=== PATIENT | female | born 1955 | race Caucasian/White ===

== ENCOUNTER → 2020-03-23 08:26 | Outpatient (BNVA) | payer BC, SELFPAY | PROVIDERS: PCP Internal Medicine; Visit Provider Hospitalist | DX: J44.9 Chronic obstructive pulmonary disease, unspecified (principal); R91.8 Other nonspecific abnormal finding of lung field; G47.33 Obstructive sleep apnea (adult) (pediatric); R05 Cough; Z99.89 Dependence on other enabling machines and devices; Z23 Encounter for immunization | CPT/HCPCS: 90686 ==

== ENCOUNTER → 2020-06-27 12:52 | Outpatient (BNVA) | payer MEDICARE, SELFPAY | PROVIDERS: PCP Internal Medicine; Visit Provider Hospitalist | DX: R91.8 Other nonspecific abnormal finding of lung field (principal); R05 Cough; G47.33 Obstructive sleep apnea (adult) (pediatric); J44.9 Chronic obstructive pulmonary disease, unspecified; Z99.89 Dependence on other enabling machines and devices | CPT/HCPCS: 99212 ==

== ENCOUNTER → 2020-07-25 15:26 | Outpatient (BNVA) | payer MEDICARE, SELFPAY | PROVIDERS: PCP Internal Medicine; Visit Provider Hospitalist | DX: J44.9 Chronic obstructive pulmonary disease, unspecified (principal); J40 Bronchitis, not specified as acute or chronic; R91.8 Other nonspecific abnormal finding of lung field; G47.33 Obstructive sleep apnea (adult) (pediatric); R05 Cough; Z99.89 Dependence on other enabling machines and devices; Z87.891 Personal history of nicotine dependence | CPT/HCPCS: 99212 ==

== ENCOUNTER 2021-01-23 13:17 | Outpatient (REF) | payer MEDICARE, SELFPAY ==
--- NOTE | ~2021-01-23 | CT_ITS ---
EXAMINATION: CT CHEST WITHOUT CONTRAST CLINICAL INFORMATION: Pulmonary nodule COMPARISON: Previous chest CT February 2019 and chest x-ray July 2019 TECHNIQUE: Multidetector volumetric CT imaging of the chest was done. Axial MIP volume rendering provided. Sagittal and coronal reformatted images were obtained. This CT examination was performed using dose optimization techniques as appropriate, variously including the following: *Automated exposure control *Adjustment of mA and/or kV according to patient size (this includes techniques or standardized protocols for targeted exams where dose is matched to indication/reason for exam; i.e. extremities or head) *Use of iterative reconstruction technique DLP: 119 mGy-cm FINDINGS: LUNGS: There are small calcified and noncalcified right upper lobe nodules that are stable. The largest is a 3 mm calcified right upper lobe nodule axial image 92 series 9. The lungs are otherwise clear. No evidence of interstitial disease is seen bronchiectasis is seen. No endobronchial or endotracheal lesion is seen. MEDIASTINUM: The mediastinum is normal. PLEURA: There is no pleural effusion. No pleural mass or thickening. AXILLA: There are surgical clips in both axilla. Bilateral breast implants have been removed.. UPPER ABDOMEN: There is a 1.7 cm low-attenuation area in the upper pole of the left kidney that is stable and may represent a cyst or OSSEOUS STRUCTURES: There are degenerative changes of the spine. CT/CT chest wo con IMPRESSION: Stable small calcified and noncalcified right upper lobe pulmonary nodules.
== END 2021-01-23 13:18 | disposition home or self-care (01) ==
LOC: HO.CT 13:17
PROVIDERS: PCP Internal Medicine; Visit Provider Hospitalist
DX: R91.8 Other nonspecific abnormal finding of lung field (principal)
CPT/HCPCS: 71250

== ENCOUNTER → 2021-02-16 12:55 | Outpatient (BNVA) | payer MEDICARE, SELFPAY | PROVIDERS: PCP Internal Medicine; Visit Provider Hospitalist | DX: R91.8 Other nonspecific abnormal finding of lung field (principal); R05.9 Cough, unspecified; J44.9 Chronic obstructive pulmonary disease, unspecified; G47.33 Obstructive sleep apnea (adult) (pediatric); Z99.89 Dependence on other enabling machines and devices | CPT/HCPCS: 99212 ==

== ENCOUNTER → 2021-11-02 13:53 | Outpatient (BNVA) | payer MEDICARE, SELFPAY | PROVIDERS: PCP Internal Medicine; Visit Provider Hospitalist | DX: J44.9 Chronic obstructive pulmonary disease, unspecified (principal); R91.8 Other nonspecific abnormal finding of lung field; R06.00 Dyspnea, unspecified; R07.9 Chest pain, unspecified; G47.33 Obstructive sleep apnea (adult) (pediatric); Z79.899 Other long term (current) drug therapy; Z99.89 Dependence on other enabling machines and devices | CPT/HCPCS: 99212 ==

== ENCOUNTER → 2021-12-13 10:52 | Outpatient (REF) | payer MEDICARE, SELFPAY ==
--- NOTE | ~2021-12-13 | CT_ITS ---
EXAMINATION: CT CHEST WITHOUT CONTRAST CLINICAL INFORMATION: Pulmonary nodules. Breast cancer. COMPARISON: Portions of a previous CT 01/23/2021 TECHNIQUE: Multidetector volumetric CT imaging of the chest was done. Axial MIP volume rendering provided. Sagittal and coronal reformatted images were obtained. This CT examination was performed using dose optimization techniques as appropriate, variously including the following: *Automated exposure control *Adjustment of mA and/or kV according to patient size (this includes techniques or standardized protocols for targeted exams where dose is matched to indication/reason for exam; i.e. extremities or head) *Use of iterative reconstruction technique DLP: 110 mGy-cm FINDINGS: ANIMAL HOSPITAL OFFICE SUPERVISOR: Metallic densities overlie the patient. There is tortuosity of the aorta. Lung volumes are normal. No dense consolidation or large mass. There are some osteophytes in the spine. LUNGS: Probably calcified nodule posterior right apex. 12/13/2021, series 7, image 96-0.3 cm 01/23/2021, series 9, image 92-0.3 cm 0.2 cm calcified nodule lateral right upper lobe (series 7, image 210) is unchanged. There are scattered areas of small airway wall thickening. There is trace centrilobular emphysema. There is no new suspicious mass or nodule. No generalized thickening of the interlobular septa. No honeycomb formation. There is some minimal density adjacent to the left hemidiaphragm similar to the previous 2 studies and likely related to fibrosis. No abnormality of the trachea or mainstem bronchi. MEDIASTINUM: There are no enlarged mediastinal or hilar lymph nodes. No suspicious abnormality of the esophagus. PLEURA: There is no pleural effusion. No pleural mass or thickening. AXILLA: There are surgical clips in the axilla. There are changes from reconstruction in the region of both breasts. Implants were present 03/02/2019 and have been removed. Probable area of fat necrosis in the medial left upper chest wall. UPPER ABDOMEN: Probable diverticulum involving the duodenum. Small unchanged low attenuating area upper left kidney could represent a cyst but is not well characterized. The stability since at least 2019 is reassuring. OSSEOUS STRUCTURES: No suspicious focal bony lesion. CT/CT chest wo con IMPRESSION: 1. No suspicious pulmonary nodules. 2. Small airways disease slightly improved when compared to 2019. 3. No measurable findings to suggest active breast cancer. Fleischner guidelines were followed.
--- NOTE | 2021-12-13 10:59 | CA_ITS ---
Acquisition Time: 2021-12-13 11:17:24 Total Exercise Time: 00:06:40 Test Indications: Dyspnea Medications: ANASTRZOLE INHALER FAMOTIDINE FAMOTIDINE DALRESP LORAZAPAM Protocol: ROSE Max HR: 171 BPM 111% of Pred: 154 BPM Max BP: 162/082 mmHG Max Work Load: 8.0 METS Exercise stress test with exercise 6 min 40 sec of Rose protocol, achieving > 95% MPHR, with moderate sob, no chest discomfort, with one PVC in recovery, with normotensive response to exercise, with artifact during exercise, without EKG changes meeting criteria for ischemia in recovery. Echo images obtained by tech at rest and immediately post peak exercise. Definity contrast used. Test reviewed with Dr Jasmine. Referred By: Rubio Rubio Overread By: CIRILO VIDALES
== END ==
LOC: HO.CARD 10:52
PROVIDERS: PCP Internal Medicine; Visit Provider Hospitalist
DX: C50.919 Malignant neoplasm of unspecified site of unspecified female breast (principal); R91.8 Other nonspecific abnormal finding of lung field
CPT/HCPCS: 71250; 93350; Q9957

== ENCOUNTER → 2021-12-19 13:03 | Outpatient (BNVA) | payer MEDICARE, SELFPAY | PROVIDERS: PCP Internal Medicine; Visit Provider Hospitalist | DX: J44.9 Chronic obstructive pulmonary disease, unspecified (principal); R91.8 Other nonspecific abnormal finding of lung field; R05.9 Cough, unspecified; R07.9 Chest pain, unspecified; R06.00 Dyspnea, unspecified; G47.33 Obstructive sleep apnea (adult) (pediatric); Z99.89 Dependence on other enabling machines and devices; Z79.899 Other long term (current) drug therapy | CPT/HCPCS: 99212 ==

== ENCOUNTER 2022-12-13 10:12 | Outpatient (REF) | payer MEDICARE, SELFPAY ==
--- NOTE | ~2022-12-13 | CT_ITS ---
EXAMINATION: CT CHEST WITHOUT CONTRAST CLINICAL INFORMATION: Nonspecific abnormal finding of lung jeff. Pulmonary nodules. Breast cancer. COMPARISON: CT chest without contrast 12/13/2021. TECHNIQUE: Multidetector volumetric CT imaging of the chest was done. Axial MIP volume rendering provided. Sagittal and coronal reformatted images were obtained. This CT examination was performed using dose optimization techniques as appropriate, variously including the following: *Automated exposure control *Adjustment of mA and/or kV according to patient size (this includes techniques or standardized protocols for targeted exams where dose is matched to indication/reason for exam; i.e. extremities or head) *Use of iterative reconstruction technique. DLP: 139 mGy-cm. FINDINGS: EMBEDDED LINUX ENGINEER: Well-expanded lungs. LUNGS: The lungs are well-expanded and clear of acute process. There is a: 2 mm calcified nodule, right upper lobe, axial image 119/6 1 mm nodule, right upper lobe anterior segment, image 181/6 1 mm calcified nodule, right upper lobe laterally, image 216/6. No additional pulmonary nodules seen. No acute consolidation, mass or ground-glass density. MEDIASTINUM: The thyroid lobes are symmetric and normal. The central trachea and the bronchi are widely patent. The heart size and the great vessels are normal caliber. No pericardial effusion seen. No abnormal size mediastinal or hilar lymphadenopathy. CORONARY ARTERY CALCIFICATION: Mild coronary artery calcifications are present. PLEURA: There is no pleural effusion. No pleural mass or thickening. AXILLA: There are bilateral axillary alfredo likely from lymph node dissection. No abnormal size axillary lymph nodes seen at this time. Partially calcified soft tissue lesion is seen in the left medial upper breast measuring 1.7 cm, likely fat necrosis. There are subpectoral alfredo from previous removal of breast implants. UPPER ABDOMEN: Visualized liver, spleen, bilateral adrenal glands and the kidneys are unremarkable. OSSEOUS STRUCTURES: There is moderate ventral spondylosis throughout mid and lower dorsal spine. No aggressive lytic or sclerotic process seen. CT/CT chest wo IV con IMPRESSION: 1. 1 mm and less calcified nodules in the right upper lobe. No new nodules seen. 2. No abnormal mediastinal or axillary lymphadenopathy. 3. Calcified soft tissue lesion left medial upper breast, likely fat necrosis. Postsurgical changes ,bilateral axilla and subpectoral regions from removal of breast implants, are stable. Fleischner guidelines were followed.
== END 2022-12-13 10:13 | disposition home or self-care (01) ==
LOC: HO.CT 10:12
PROVIDERS: PCP Internal Medicine; Visit Provider Hospitalist
DX: R91.8 Other nonspecific abnormal finding of lung field (principal)
CPT/HCPCS: 71250

== ENCOUNTER 2022-12-28 14:00 | Outpatient (AMB) | payer MEDICARE, SELFPAY ==
[2022-12-28 14:02] VITALS: BP 122/70; PULSE 81; O2SAT 97; BMI 26.6
--- NOTE | 2022-12-28 14:02 | A.OFFVIS_ITS ---
Intake Vital Signs 12/28/22 14:02 Height 5 ft 4 in Weight 155 lb BMI 26.6 BP 122/70 Blood Pressure Location Lt brachial Position Sitting Pulse 81 Pulse Source Pulse Oximeter Pulse Oximetry (%) 97 Oxygen Delivery Method Room Air Intake Visit Reasons: Asthma-COPD overlap Satellite Tv Technician Required: No Allergies No Known Allergies Allergy (Verified 12/28/22 14:04) HPI HPI Comments History of Present Illness Details The patient is a 67-year-old woman with a known history of COPD and pulmonary nodules. She has also has a history of breast cancer. She is currently cancer free. Overall her respiratory status has been stable. She has been using her inhalers as prescribed. She continues to tolerate the Daliresp although sometimes she does have GI upset and reflux disease. moderate in severity at times. We did talk about the reflux diet. She has not had to use any rescue therapy or prednisone for any exacerbations. We are following closely who pulmonary nodule specially with a history of cancer. She was due for a CT scan of the chest prior to this visit but it has not been scheduled as of yet. Will make sure that she gets a CT scan of the lung compared to her previous CT scan at [facility]. The patient did have an MRI her breast and did sisal picker a moderate hiatal hernia. At this point our for her to GI. The patient also needs to start antacid therapy to try to minimize irritation to her esophagus and also minimize irritation to the lungs. She did have a CT scan of the chest noting some minimal inflammation of the airways primarily at the bases began of the question of microaspiration and also some nodular densities that appear to be stable. She appears to be stable occurred respiratory regimen which she will continue. Although, as her to cut down on the Daliresp that can increase her GI side effects. The patient is also wondering about breast surgery. She has had implants in after having breast cancer and she is having a lot of inflammation and discomfort. She is thinking about surgery. Apparently she was in her usual state health until recently when she went to [place] and went to the [facility]. There she was exposed to significant dust. She was covering herself but did have the proper gear. She still having worsening cough. Denies fevers or chills denies any rash. I did mention the risk of Valley fever but at this point the patient again did not have any the typical symptoms consistent with that. However her cough continued getting worse. The patient is planned to undergo plastic surgery for her breast. She has a prosthesis after having breast cancer in of the prosthesis has to be removed and then have surgery in place. In addition to that she is taking having her deviated septum corrected. 03/23/2020 the patient is here for pulmonary follow-up visit. Overall mel london is doing well. She did undergo her surgery with removal of her breast prosthesis and reconstruction. She still healing from her surgery. She was started on antibiotics, Bactrim for a wound infection. Seems to be tolerating it okay. She has been complaining of worsening cough. Has been having some increased nasal congestion as well. At this point her respiratory exam is within normal limits and I do not hear any crackles or wheezing or rhonchi at this time. Most likely her cough is associated with allergies in associated with postnasal drip. She will try the fluticasone and will continue with the current respiratory regimen. If her symptoms do not improve or worsen and if she develops any chest discomfort or any shortness of breath she is to call in order for us to do further studies. The patient has been tolerating her CPAP. CPAP therapy continues to be affecting beneficial. She does use for more than 4 hours a night. 06/27/2020 by the patient is here for pulmonary follow-up visit. Overall the patient has been doing well from a respiratory status. She has been using her CPAP. The CPAP therapy continues to be affecting beneficial. She does use it for more than 4 hours a night. He does get supplies through [facility] did have a N30i mask for her to try. Hopefully the nasal mask will be more comfortable for her. She will let me now. In the meantime she continues her respiratory medication a very good effect. Her cough is better overall. She is not having significant shortness of breath. She is also tolerating the Daliresp without any significant mood changes or GI symptoms. She is scheduled to undergo a CT scan sometime in August. However will go ahead and move that early fall in order for her to take all the precautions for the COVID-19 infections. Will follow up to her after the CT scan. 07/25/2020 the patient is here for sick visit. She has been having worsening cough now for about a couple weeks. Apparently I saw her in after that she started developing the symptoms. She feels like the chest is the middle of her chest area and she is expectorating some mucus which is usually based or clear in color. Denies any blood. It was worse with some increasing shortness of breath and heaviness in the chest area. Although, that has relieved to some degree today. Today is not too bad. She is scheduled to receive the protests posterior this week. She has plans to go to to see her grandson. In the meantime she continues use her CPAP in the CPAP therapy continues to be affecting beneficial. She should try rinsing her nose prior to using CPAP to minimize too much nasal congestion and postnasal drip. She is also going to sisal picker some Mucinex DM to help with the expectoration and also has a cough suppressant. Will follow up during her schedule follow-up visit. 02/16/2021 the patient is here for a pulmonary follow-up visit. Overall the patient has been feeling better. During the last visit she did require Antibiotics for bronchitis. She did not require any prednisone. Her respiratory status is better. She is going back to work at this time. She is tolerating her respiratory medications. She is wondering if she can cut down. In the meantime she has not been using the CPAP regularly. She does wake up tired. Her Barco score is elevated 02/26. I did recommend she go back on her CPAP. She will start her CPAP routine again we did review her recent CT scan of the chest. Her pulmonary nodules continued to be stable. They are subcentimeter in size. She does have a history of breast cancer and also tobacco dependency. Therefore she is high risk for malignancies. Will plan to follow up the CT scan in 1 year. 11/02/2021 the patient is here for pulmonary follow-up visit. She complains of worsening dyspnea [id number] severity. Also associated with some chest heaviness. Substernal in nature. Currently is not present. She did have an EKG done per the patient. I do not have the results but she was told was okay. The patient has never undergone a cardiac stress test. In addition she continues use her Alvesco. She has not been using her rescue inhaler. I do believe that will try to maximize respiratory therapy by adding a combination bronchodilator that she can use along with her Alvesco. I am hoping that maximizing her respiratory capacity improves her symptoms. She does have a CT scan scheduled for January 2022 to follow-up with pulmonary nodules. If the patient is not better however, will go ahead and order the CT scan sooner. 12/19/2021 the patient is here for a pulmonary follow-up visit. Overall she is doing well. She did undergo a stress echo which was reassuring without any evidence of any abnormalities. She continues to exercise regularly. Her chest heaviness symptoms have improved. Initially I prescribed Bevespi that was very expensive for her. She did try but then she stopped it as she did not need it any longer. She does continue to use the Alvesco in the Daliresp on a daily basis. In the meantime the patient also had a CT scan of the chest personally by me demonstrating stable pulmonary nodules. At this point the patient is doing well. Will plan to follow-up in a year's time with a CT scan of the chest. 12/28/2022 the patient is here for a pulmonary follow-up visit. She continues to do well from a respiratory status. She stop the Bevespi. She has been using the Alvesco as prescribed with good effects. She continues on the Daliresp. These appear to be affecting beneficial. She has not had any flare ups. She has not required any prednisone. She did have a recent CT scan of the chest which we personally reviewed. Her pulmonary nodules have not changed in several years which is reassuring. She does have some fat necrosis in the breast area and postsurgical changes. 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 [facility] Medical History (Updated 12/19/21 @ 22:14 by Rubio Rubio MD) Asthma-COPD overlap syndrome Breast cancer Cough JORGE LUIS on CPAP Pulmonary nodules Surgical History (Updated 11/02/21 @ 12:49 by Adelina Arevalo PA-C) History of breast surgery Social History (Updated 02/16/21 @ 13:06 by ARA Wood) Patient Tobacco Use Status: Former Tobacco user Tobacco use type: Cigarette Years Smoked: 20 years Review of Systems Const Denies night sweats ENT Denies change in voice, Denies lip swelling, Denies mouth pain, Reports nasal congestion, Reports nasal discharge and Denies tongue swelling Card Denies dyspnea on exertion Resp Reports cough and Denies dyspnea on exertion GI Reports abdominal pain Musc Denies no additional complaints Neuro Denies Neuro-related abnormal movements Psych Denies no additional complaints Donaldo/Lymph Denies easy bleeding and Denies lymphadenopathy Aller/Immun Denies lip swelling and Denies tongue swelling Physical Exam Vital Signs: Last Vital Signs Pulse 81 12/28/22 14:02 BP 122/70 12/28/22 14:02 Pulse Ox 97 12/28/22 14:02 Oxygen Delivery Method Room Air 12/28/22 14:02 BMI result Body Mass Index 26.6 Const General: alert HEENT General nose exam: Abnormal external nose present and Nasal discharge present Eyes Pupils: Equal, round and reactive pupils present Neck Neck: Yes normal visual inspection, Yes full ROM and Yes no lymphadenopathy Chest Chest palpation & inspection: normal inspection of the chest Resp Auscultation: no crackles, no rales, no rhonchi, no wheezes and diminished lung sounds Cardio Rate: regular rate Rhythm: regular rhythm Heart sounds: S1 normal heart sound present and S2 normal heart sound present GI Palpation (GI): Soft to palpation Auscultation: normal bowel sounds General: Yes no CVA tenderness Back/Spine/Pelvis Back: no CVA tenderness Skin General skin exam: rashes and/or lesions noted Neuro Cranial nerves: Yes Equal, round and reactive pupils present Results Reviewed Results Reviewed: [place] [id number] CT Scan Report Signed Patient: Salma Arellano MR#: [id number] : 1955 Acct:[id number] Age/Sex: 67 / F ADM Date: 12/13/22 Loc: HO.CT Attending Dr: Rubio Rubio MD Ordering Physician: Rubio Rubio MD Date of Service: 12/13/22 Procedure(s): CT chest wo IV con Accession Number(s): [id number] cc: Rubio Rubio MD~ EXAMINATION: CT CHEST WITHOUT CONTRAST CLINICAL INFORMATION: Nonspecific abnormal finding of lung jeff. Pulmonary nodules. Breast cancer. COMPARISON: CT chest without contrast 12/13/2021. TECHNIQUE: Multidetector volumetric CT imaging of the chest was done. Axial MIP volume rendering provided. Sagittal and coronal reformatted images were obtained.? This CT examination was performed using dose optimization techniques as appropriate, variously including the following: *Automated exposure control *Adjustment of mA and/or kV according to patient size (this includes techniques or standardized protocols for targeted exams where dose is matched to indication/reason for exam; i.e. extremities or head) *Use of iterative reconstruction technique. DLP: 139 mGy-cm. FINDINGS: HOGSHEAD INSPECTOR: Well-expanded lungs. LUNGS: The lungs are well-expanded and clear of acute process. There is a: 2 mm calcified nodule, right upper lobe, axial image 119/6 1 mm nodule, right upper lobe anterior segment, image 181/6 1 mm calcified nodule, right upper lobe laterally, image 216/6. No additional pulmonary nodules seen. No acute consolidation, mass or ground-glass density. MEDIASTINUM: The thyroid lobes are symmetric and normal. The central trachea and the bronchi are widely patent. The heart size and the great vessels are normal caliber. No pericardial effusion seen. No abnormal size mediastinal or hilar lymphadenopathy.? CORONARY ARTERY CALCIFICATION: Mild coronary artery calcifications are present. PLEURA: There is no pleural effusion. No pleural mass or thickening.? AXILLA: There are bilateral axillary alfredo likely from lymph node dissection. No abnormal size axillary lymph nodes seen at this time. Partially calcified soft tissue lesion is seen in the left medial upper breast measuring 1.7 cm, likely fat necrosis. There are subpectoral alfredo from previous removal of breast implants. UPPER ABDOMEN: Visualized liver, spleen, bilateral adrenal glands and the kidneys are unremarkable.? OSSEOUS STRUCTURES: There is moderate ventral spondylosis throughout mid and lower dorsal spine. No aggressive lytic or sclerotic process seen.? CT/CT chest wo IV con IMPRESSION: 1.? 1 mm and less calcified nodules in the right upper lobe. No new nodules seen. ? 2. No abnormal mediastinal or axillary lymphadenopathy. ? 3. Calcified soft tissue lesion left medial upper breast, likely fat necrosis. Postsurgical changes ,bilateral axilla and subpectoral regions from removal of breast implants, are stable. ? Fleischner guidelines were followed. Dictated By: Aldo Damon MD Signed By: <Electronically signed by Aldo Damon MD in OV> 12/17/22 1350 DD/ 1054 TD/TT:? [place] [facility] [place] Assessment & Plan (1) Pulmonary nodules: Code(s): R91.8 - Other nonspecific abnormal finding of lung field (2) Cough: Code(s): R05 - Cough (3) JORGE LUIS on CPAP: Code(s): G47.33 - Obstructive sleep apnea (adult) (pediatric); Z99.89 - Dependence on other enabling machines and devices (4) Asthma-COPD overlap syndrome: Code(s): J44.9 - Chronic obstructive pulmonary disease, unspecified (5) Dyspnea: Comment: better Code(s): R06.00 - Dyspnea, unspecified Plan continue Alvesco 180 mcg. continue Daliresp 500 mcg daily short-acting beta agonist as needed repeat CT scan of the chest in 18 to 24 months follow-up in 12 months Coding Level of Care Code Est Pt Level 4 (67302) Diagnoses Pulmonary nodules R91.8 Cough R05 JORGE LUIS on CPAP G47.33; Z99.89 Asthma-COPD overlap syndrome J44.9 Dyspnea R06.00 Time Spent (min) 17
== END 2022-12-28 14:35 | disposition home or self-care (01) ==
PROVIDERS: PCP Internal Medicine; Visit Provider Hospitalist
DX: R91.8 Other nonspecific abnormal finding of lung field (principal); R05.9 Cough, unspecified; G47.33 Obstructive sleep apnea (adult) (pediatric); Z99.89 Dependence on other enabling machines and devices; J44.9 Chronic obstructive pulmonary disease, unspecified; R06.00 Dyspnea, unspecified
CPT/HCPCS: 99214

== ENCOUNTER → 2022-12-28 14:00 | Outpatient (BNVA) | payer MEDICARE, SELFPAY | PROVIDERS: PCP Internal Medicine; Visit Provider Hospitalist | DX: J44.9 Chronic obstructive pulmonary disease, unspecified (principal); R91.8 Other nonspecific abnormal finding of lung field; R06.00 Dyspnea, unspecified; R05.9 Cough, unspecified; G47.33 Obstructive sleep apnea (adult) (pediatric); Z85.3 Personal history of malignant neoplasm of breast; Z99.89 Dependence on other enabling machines and devices | CPT/HCPCS: 99212 ==

== ENCOUNTER 2024-02-03 10:14 | Outpatient (AMB) | payer MEDICARE, SELFPAY ==
--- NOTE | 2024-02-03 10:17 | MHC.OFFVIS ---
Vital Signs 02/03/24 10:19 Height 5 ft 5 in Weight 146 lb 9.718 oz BMI 24.4 BP 100/70 Blood Pressure Location Lt brachial Position Sitting Pulse 70 Pulse Source Pulse Oximeter Pulse Oximetry (%) 99 Oxygen Delivery Method Room Air Intake Visit Reasons: Asthma/COPD Allergies No Known Allergies Allergy (Verified 02/03/24 10:17) HPI Comments Details: The patient is a 68-year-old woman with a known history of COPD and pulmonary nodules. She has also has a history of breast cancer. She is currently cancer free. Overall her respiratory status has been stable. She has been using her inhalers as prescribed. She continues to tolerate the Daliresp although sometimes she does have GI upset and reflux disease. moderate in severity at times. We did talk about the reflux diet. She has not had to use any rescue therapy or prednisone for any exacerbations. We are following closely who pulmonary nodule specially with a history of cancer. She was due for a CT scan of the chest prior to this visit but it has not been scheduled as of yet. Will make sure that she gets a CT scan of the lung compared to her previous CT scan at [facility]. The patient did have an MRI her breast and did cloth picker a moderate hiatal hernia. At this point our for her to GI. The patient also needs to start antacid therapy to try to minimize irritation to her esophagus and also minimize irritation to the lungs. She did have a CT scan of the chest noting some minimal inflammation of the airways primarily at the bases began of the question of microaspiration and also some nodular densities that appear to be stable. She appears to be stable occurred respiratory regimen which she will continue. Although, as her to cut down on the Daliresp that can increase her GI side effects. The patient is also wondering about breast surgery. She has had implants in after having breast cancer and she is having a lot of inflammation and discomfort. She is thinking about surgery. Apparently she was in her usual state health until recently when she went to [place] and went to the [facility]. There she was exposed to significant dust. She was covering herself but did have the proper gear. She still having worsening cough. Denies fevers or chills denies any rash. I did mention the risk of Valley fever but at this point the patient again did not have any the typical symptoms consistent with that. However her cough continued getting worse. The patient is planned to undergo plastic surgery for her breast. She has a prosthesis after having breast cancer in of the prosthesis has to be removed and then have surgery in place. In addition to that she is taking having her deviated septum corrected. 03/23/2020 the patient is here for pulmonary follow-up visit. Overall she is doing well. She did undergo her surgery with removal of her breast prosthesis and reconstruction. She still healing from her surgery. She was started on antibiotics, Bactrim for a wound infection. Seems to be tolerating it okay. She has been complaining of worsening cough. Has been having some increased nasal congestion as well. At this point her respiratory exam is within normal limits and I do not hear any crackles or wheezing or rhonchi at this time. Most likely her cough is associated with allergies in associated with postnasal drip. She will try the fluticasone and will continue with the current respiratory regimen. If her symptoms do not improve or worsen and if she develops any chest discomfort or any shortness of breath she is to call in order for us to do further studies. The patient has been tolerating her CPAP. CPAP therapy continues to be affecting beneficial. She does use for more than 4 hours a night. 06/27/2020 by the patient is here for pulmonary follow-up visit. Overall the patient has been doing well from a respiratory status. She has been using her CPAP. The CPAP therapy continues to be affecting beneficial. She does use it for more than 4 hours a night. He does get supplies through [employer] [facility] did have a N30i mask for her to try. Hopefully the nasal mask will be more comfortable for her. She will let me now. In the meantime she continues her respiratory medication a very good effect. Her cough is better overall. She is not having significant shortness of breath. She is also tolerating the Daliresp without any significant mood changes or GI symptoms. She is scheduled to undergo a CT scan sometime in August. However will go ahead and move that early fall in order for her to take all the precautions for the COVID-19 infections. Will follow up to her after the CT scan. 07/25/2020 the patient is here for sick visit. She has been having worsening cough now for about a couple weeks. Apparently I saw her in after that she started developing the symptoms. She feels like the chest is the middle of her chest area and she is expectorating some mucus which is usually based or clear in color. Denies any blood. It was worse with some increasing shortness of breath and heaviness in the chest area. Although, that has relieved to some degree today. Today is not too bad. She is scheduled to receive the protests posterior this week. She has plans to go to to see her grandson. In the meantime she continues use her CPAP in the CPAP therapy continues to be affecting beneficial. She should try rinsing her nose prior to using CPAP to minimize too much nasal congestion and postnasal drip. She is also going to cloth picker some Mucinex DM to help with the expectoration and also has a cough suppressant. Will follow up during her schedule follow-up visit. 02/16/2021 the patient is here for a pulmonary follow-up visit. Overall the patient has been feeling better. During the last visit she did require Antibiotics for bronchitis. She did not require any prednisone. Her respiratory status is better. She is going back to work at this time. She is tolerating her respiratory medications. She is wondering if she can cut down. In the meantime she has not been using the CPAP regularly. She does wake up tired. Her [place] score is elevated 02/26. I did recommend she go back on her CPAP. She will start her CPAP routine again we did review her recent CT scan of the chest. Her pulmonary nodules continued to be stable. They are subcentimeter in size. She does have a history of breast cancer and also tobacco dependency. Therefore she is high risk for malignancies. Will plan to follow up the CT scan in 1 year. 11/02/2021 the patient is here for pulmonary follow-up visit. She complains of worsening dyspnea [id number] severity. Also associated with some chest heaviness. Substernal in nature. Currently is not present. She did have an EKG done per the patient. I do not have the results but she was told was okay. The patient has never undergone a cardiac stress test. In addition she continues use her Alvesco. She has not been using her rescue inhaler. I do believe that will try to maximize respiratory therapy by adding a combination bronchodilator that she can use along with her Alvesco. I am hoping that maximizing her respiratory capacity improves her symptoms. She does have a CT scan scheduled for January 2022 to follow-up with pulmonary nodules. If the patient is not better however, will go ahead and order the CT scan sooner. 12/19/2021 the patient is here for a pulmonary follow-up visit. Overall she is doing well. She did undergo a stress echo which was reassuring without any evidence of any abnormalities. She continues to exercise regularly. Her chest heaviness symptoms have improved. Initially I prescribed Bevespi that was very expensive for her. She did try but then she stopped it as she did not need it any longer. She does continue to use the Alvesco in the Daliresp on a daily basis. In the meantime the patient also had a CT scan of the chest personally by me demonstrating stable pulmonary nodules. At this point the patient is doing well. Will plan to follow-up in a year's time with a CT scan of the chest. 12/28/2022 the patient is here for a pulmonary follow-up visit. She continues to do well from a respiratory status. She stop the Bevespi. She has been using the Alvesco as prescribed with good effects. She continues on the Daliresp. These appear to be affecting beneficial. She has not had any flare ups. She has not required any prednisone. She did have a recent CT scan of the chest which we personally reviewed. Her pulmonary nodules have not changed in several years which is reassuring. She does have some fat necrosis in the breast area and postsurgical changes. 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 02/03/2024 the patient is here for a pulmonary follow-up visit. The patient overall has been doing well. She continues on Alvesco. She continues on the Daliresp. Medications have been affecting beneficial. She does have a rescue inhaler but she does not needed frequently which is good. She recently was evaluated for abdominal pain. She was diagnosed with diverticulitis. During the time she had a CT scan of the abdomen demonstrating calcifications of the coronary arteries. Therefore she underwent a stress test that was abnormal and then subsequently had a cardiac catheterization that per report was reasonable with minimal disease. She was placed on medications which are cardioprotective in nature. And she has been otherwise okay. We did review her last CT scan was back in 2022 with small pulmonary nodules. The patient is high risk with her smoking. She is also concerned because of history of cancer. Therefore will be the CT scan 1 more time. [facility] Medical History (Updated 02/03/24 @ 10:24 by Rubio Rubio MD) Breast cancer Pulmonary nodules Cough JORGE LUIS on CPAP Asthma-COPD overlap syndrome Surgical History (Updated 11/02/21 @ 12:49 by Adelina Arevalo PA-C) History of breast surgery Social History (Updated 02/16/21 @ 13:06 by Eunice Kay Rafa) Patient Tobacco Use Status: Former Tobacco user Tobacco use type: Cigarette Years Smoked: 20 years Review of Systems Const Denies night sweats ENT Denies change in voice, Denies lip swelling, Denies mouth pain, Reports nasal congestion, Reports nasal discharge and Denies tongue swelling Card Denies dyspnea on exertion Resp Reports cough and Denies dyspnea on exertion GI Reports abdominal pain Musc Denies no additional complaints Neuro Denies Neuro-related abnormal movements Psych Denies no additional complaints Donaldo/Lymph Denies easy bleeding and Denies lymphadenopathy Aller/Immun Denies lip swelling and Denies tongue swelling Physical Exam Vital Signs: Last Vital Signs Pulse 70 02/03/24 10:19 BP 100/70 02/03/24 10:19 Pulse Ox 99 02/03/24 10:19 Oxygen Delivery Method Room Air 02/03/24 10:19 BMI result Body Mass Index 24.4 Const General: alert HEENT General nose exam: Abnormal external nose present and Nasal discharge present Eyes Pupils: Equal, round and reactive pupils present Neck Neck: Yes normal visual inspection, Yes full ROM and Yes no lymphadenopathy Chest Chest palpation & inspection: normal inspection of the chest Resp Auscultation: no crackles, no rales, no rhonchi, no wheezes and diminished lung sounds Cardio Rate: regular rate Rhythm: regular rhythm Heart sounds: S1 normal heart sound present and S2 normal heart sound present GI Palpation (GI): Soft to palpation Auscultation: normal bowel sounds General: Yes no CVA tenderness Back/Spine/Pelvis Back: no CVA tenderness Skin General skin exam: rashes and/or lesions noted Neuro Cranial nerves: Yes Equal, round and reactive pupils present Assessment & Plan Assessment & Plan (1) Pulmonary nodules: Code(s): R91.8 - Other nonspecific abnormal finding of lung field Category: Medical (2) Cough: Code(s): R05 - Cough Category: Medical Qualifiers: Cough type: chronic Qualified Code(s): R05.3 - Chronic cough (3) JORGE LUIS on CPAP: Code(s): G47.33 - Obstructive sleep apnea (adult) (pediatric); Z99.89 - Dependence on other enabling machines and devices Category: Medical (4) Asthma-COPD overlap syndrome: Code(s): J44.9 - Chronic obstructive pulmonary disease, unspecified Category: Medical (5) Dyspnea: Comment: better Code(s): R06.00 - Dyspnea, unspecified Category: Medical Qualifiers: Dyspnea type: dyspnea on exertion Qualified Code(s): R06.09 - Other forms of dyspnea Plan continue Alvesco 180 mcg. continue Daliresp 500 mcg daily short-acting beta agonist as needed repeat CT scan of the chest follow-up in 12 months Orders: Orders CT chest wo IV con Today R91.8 - Other nonspecific abnormal finding of lung field Medications: Changed From roflumilast 500 mcg PO DAILY 30 tabs 0RF R91.8 - Other nonspecific abnormal finding of lung field To roflumilast 500 mcg PO DAILY 90 tabs 3RF 90 days R91.8 - Other nonspecific abnormal finding of lung field Coding Level of Care Code Est Pt Level 4 (68822) Diagnoses Pulmonary nodules R91.8 Chronic cough R05.3 Cough type: chronic JORGE LUIS on CPAP G47.33; Z99.89 Asthma-COPD overlap syndrome J44.9 Dyspnea on exertion R06.09 Dyspnea type: dyspnea on exertion Time Spent (min) 16
[2024-02-03 10:19] VITALS: BP 100/70; PULSE 70; O2SAT 99; BMI 24.4
== END 2024-02-03 10:38 | disposition home or self-care (01) ==
PROVIDERS: PCP Internal Medicine; Visit Provider Hospitalist
DX: R91.8 Other nonspecific abnormal finding of lung field (principal); R05.3 Chronic cough; G47.33 Obstructive sleep apnea (adult) (pediatric); Z99.89 Dependence on other enabling machines and devices; J44.9 Chronic obstructive pulmonary disease, unspecified; R06.09 Other forms of dyspnea
CPT/HCPCS: 99214

== ENCOUNTER → 2024-02-03 10:14 | Outpatient (BNVA) | payer MEDICARE, SELFPAY | PROVIDERS: PCP Internal Medicine; Visit Provider Hospitalist | DX: J44.9 Chronic obstructive pulmonary disease, unspecified (principal); R91.8 Other nonspecific abnormal finding of lung field; R05.3 Chronic cough; R06.09 Other forms of dyspnea; G47.33 Obstructive sleep apnea (adult) (pediatric); Z99.89 Dependence on other enabling machines and devices | CPT/HCPCS: 99212 ==

== ENCOUNTER 2024-12-28 08:38 | Outpatient (AMB) | payer MEDICARE, SELFPAY ==
--- NOTE | 2024-12-28 08:42 | MHC.OFFVIS ---
Vital Signs 12/28/24 08:43 Height 5 ft 5 in Weight 147 lb 11.355 oz BMI 24.6 BP 90/62 Blood Pressure Location Lt brachial Position Sitting Pulse 80 Pulse Source Pulse Oximeter Pulse Oximetry (%) 99 Oxygen Delivery Method Room Air Intake Visit Reasons: Asthma Clinical Nurse Occupational Medicine Required: No Accompanied by: Self / Same As Patient Allergies No Known Allergies Allergy (Verified 12/28/24 08:46) HPI Comments Details: The patient is a 69-year-old woman with a known history of COPD and pulmonary nodules. She has also has a history of breast cancer. She is currently cancer free. Overall her respiratory status has been stable. She has been using her inhalers as prescribed. She continues to tolerate the Daliresp although sometimes she does have GI upset and reflux disease. moderate in severity at times. We did talk about the reflux diet. She has not had to use any rescue therapy or prednisone for any exacerbations. We are following closely who pulmonary nodule specially with a history of cancer. She was due for a CT scan of the chest prior to this visit but it has not been scheduled as of yet. Will make sure that she gets a CT scan of the lung compared to her previous CT scan at [facility]. The patient did have an MRI her breast and did metal pickling equipment operator a moderate hiatal hernia. At this point our for her to GI. The patient also needs to start antacid therapy to try to minimize irritation to her esophagus and also minimize irritation to the lungs. She did have a CT scan of the chest noting some minimal inflammation of the airways primarily at the bases began of the question of microaspiration and also some nodular densities that appear to be stable. She appears to be stable occurred respiratory regimen which she will continue. Although, as her to cut down on the Daliresp that can increase her GI side effects. The patient is also wondering about breast surgery. She has had implants in after having breast cancer and she is having a lot of inflammation and discomfort. She is thinking about surgery. Apparently she was in her usual state health until recently when she went to [place] and went to the [facility]. There she was exposed to significant dust. She was covering herself but did have the proper gear. She still having worsening cough. Denies fevers or chills denies any rash. I did mention the risk of [place] fever but at this point the patient again did not have any the typical symptoms consistent with that. However her cough continued getting worse. The patient is planned to undergo plastic surgery for her breast. She has a prosthesis after having breast cancer in of the prosthesis has to be removed and then have surgery in place. In addition to that she is taking having her deviated septum corrected. 03/23/2020 the patient is here for pulmonary follow-up visit. Overall she is doing well. She did undergo her surgery with removal of her breast prosthesis and reconstruction. She still healing from her surgery. She was started on antibiotics, Bactrim for a wound infection. Seems to be tolerating it okay. She has been complaining of worsening cough. Has been having some increased nasal congestion as well. At this point her respiratory exam is within normal limits and I do not hear any crackles or wheezing or rhonchi at this time. Most likely her cough is associated with allergies in associated with postnasal drip. She will try the fluticasone and will continue with the current respiratory regimen. If her symptoms do not improve or worsen and if she develops any chest discomfort or any shortness of breath she is to call in order for us to do further studies. The patient has been tolerating her CPAP. CPAP therapy continues to be affecting beneficial. She does use for more than 4 hours a night. 06/27/2020 by the patient is here for pulmonary follow-up visit. Overall the patient has been doing well from a respiratory status. She has been using her CPAP. The CPAP therapy continues to be affecting beneficial. She does use it for more than 4 hours a night. He does get supplies through [facility] did have a N30i mask for her to try. Hopefully the nasal mask will be more comfortable for her. She will let me now. In the meantime she continues her respiratory medication a very good effect. Her cough is better overall. She is not having significant shortness of breath. She is also tolerating the Daliresp without any significant mood changes or GI symptoms. She is scheduled to undergo a CT scan sometime in August. However will go ahead and move that early fall in order for her to take all the precautions for the COVID-19 infections. Will follow up to her after the CT scan. 07/25/2020 the patient is here for sick visit. She has been having worsening cough now for about a couple weeks. Apparently I saw her in after that she started developing the symptoms. She feels like the chest is the middle of her chest area and she is expectorating some mucus which is usually based or clear in color. Denies any blood. It was worse with some increasing shortness of breath and heaviness in the chest area. Although, that has relieved to some degree today. Today is not too bad. She is scheduled to receive the protests posterior this week. She has plans to go to to see her grandson. In the meantime she continues use her CPAP in the CPAP therapy continues to be affecting beneficial. She should try rinsing her nose prior to using CPAP to minimize too much nasal congestion and postnasal drip. She is also going to metal pickling equipment operator some Mucinex DM to help with the expectoration and also has a cough suppressant. Will follow up during her schedule follow-up visit. 02/16/2021 the patient is here for a pulmonary follow-up visit. Overall the patient has been feeling better. During the last visit she did require Antibiotics for bronchitis. She did not require any prednisone. Her respiratory status is better. She is going back to work at this time. She is tolerating her respiratory medications. She is wondering if she can cut down. In the meantime she has not been using the CPAP regularly. She does wake up tired. Her [place] score is elevated 02/26. I did recommend she go back on her CPAP. She will start her CPAP routine again we did review her recent CT scan of the chest. Her pulmonary nodules continued to be stable. They are subcentimeter in size. She does have a history of breast cancer and also tobacco dependency. Therefore she is high risk for malignancies. Will plan to follow up the CT scan in 1 year. 11/02/2021 the patient is here for pulmonary follow-up visit. She complains of worsening dyspnea [id number] severity. Also associated with some chest heaviness. Substernal in nature. Currently is not present. She did have an EKG done per the patient. I do not have the results but she was told was okay. The patient has never undergone a cardiac stress test. In addition she continues use her Alvesco. She has not been using her rescue inhaler. I do believe that will try to maximize respiratory therapy by adding a combination bronchodilator that she can use along with her Alvesco. I am hoping that maximizing her respiratory capacity improves her symptoms. She does have a CT scan scheduled for January 2022 to follow-up with pulmonary nodules. If the patient is not better however, will go ahead and order the CT scan sooner. 12/19/2021 the patient is here for a pulmonary follow-up visit. Overall she is doing well. She did undergo a stress echo which was reassuring without any evidence of any abnormalities. She continues to exercise regularly. Her chest heaviness symptoms have improved. Initially I prescribed Bevespi that was very expensive for her. She did try but then she stopped it as she did not need it any longer. She does continue to use the Alvesco in the Daliresp on a daily basis. In the meantime the patient also had a CT scan of the chest personally by me demonstrating stable pulmonary nodules. At this point the patient is doing well. Will plan to follow-up in a year's time with a CT scan of the chest. 12/28/2022 the patient is here for a pulmonary follow-up visit. She continues to do well from a respiratory status. She stop the Bevespi. She has been using the Alvesco as prescribed with good effects. She continues on the Daliresp. These appear to be affecting beneficial. She has not had any flare ups. She has not required any prednisone. She did have a recent CT scan of the chest which we personally reviewed. Her pulmonary nodules have not changed in several years which is reassuring. She does have some fat necrosis in the breast area and postsurgical changes. 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 02/03/2024 the patient is here for a pulmonary follow-up visit. The patient overall has been doing well. She continues on Alvesco. She continues on the Daliresp. Medications have been affecting beneficial. She does have a rescue inhaler but she does not needed frequently which is good. She recently was evaluated for abdominal pain. She was diagnosed with diverticulitis. During the time she had a CT scan of the abdomen demonstrating calcifications of the coronary arteries. Therefore she underwent a stress test that was abnormal and then subsequently had a cardiac catheterization that per report was reasonable with minimal disease. She was placed on medications which are cardioprotective in nature. And she has been otherwise okay. We did review her last CT scan was back in 2022 with small pulmonary nodules. The patient is high risk with her smoking. She is also concerned because of history of cancer. Therefore will be the CT scan 1 more time. 12/28/2024 the patient is here for a pulmonary follow-up visit. Overall she is doing well. She was not [place] she underwent a CT scan of the abdomen because of some question diverticulitis. Found to have significant atherosclerosis and she was referred to Cardiology. There she had an abnormal stress test and ultimately underwent a cardiac catheterization. No significant CAD just a 30% blockage in 1 of the vessels. Overall the patient is doing well. She did have a CT scan back in 2022 demonstrating pulmonary nodules. The patient does have a history of breast cancer. She was supposed to have a CAT scan but she was away in [place]. I will go ahead and reorder it at this time in view of her history of cancer be important to follow-up with the nodular densities. The patient does continue with respiratory inhalers and also continues with the Daliresp with good effect. In the meantime the patient does have daytime drowsiness. [place] score is elevated 11/24. She will need to get another sleep study to get her activated again with the [employer] for CPAP supplies. Will plan to do a sleep study when she returns back from [place]. [facility] Medical History (Updated 12/28/24 @ 09:32 by Rubio Rubio MD) Breast cancer Pulmonary nodules Cough JORGE LUIS on CPAP Asthma-COPD overlap syndrome Surgical History (Updated 11/02/21 @ 12:49 by Adelina Arevalo PA-C) History of breast surgery Social History Patient Tobacco Use Status: Former Tobacco user Tobacco use type: Cigarette Years Smoked: 20 years Review of Systems Const Reports daytime sleepiness and Denies night sweats ENT Denies change in voice, Denies lip swelling, Denies mouth pain, Reports nasal congestion, Reports nasal discharge and Denies tongue swelling Card Denies dyspnea on exertion Resp Reports cough and Denies dyspnea on exertion GI Denies abdominal pain Musc Denies no additional complaints Neuro Denies Neuro-related abnormal movements Psych Denies no additional complaints Donaldo/Lymph Denies easy bleeding and Denies lymphadenopathy Aller/Immun Denies lip swelling and Denies tongue swelling Physical Exam Vital Signs: Last Vital Signs Pulse 80 12/28/24 08:43 BP 90/62 12/28/24 08:43 Pulse Ox 99 12/28/24 08:43 Oxygen Delivery Method Room Air 12/28/24 08:43 BMI result Body Mass Index 24.6 Const General: alert HEENT General nose exam: Abnormal external nose present and Nasal discharge present Eyes Pupils: Equal, round and reactive pupils present Neck Neck: Yes normal visual inspection, Yes full ROM and Yes no lymphadenopathy Chest Chest palpation & inspection: normal inspection of the chest Resp Auscultation: no crackles, no rales, no rhonchi, no wheezes and diminished lung sounds Cardio Rate: regular rate Rhythm: regular rhythm Heart sounds: S1 normal heart sound present and S2 normal heart sound present GI Palpation (GI): Soft to palpation Auscultation: normal bowel sounds General: Yes no CVA tenderness Back/Spine/Pelvis Back: no CVA tenderness Skin General skin exam: rashes and/or lesions noted Neuro Cranial nerves: Yes Equal, round and reactive pupils present Assessment & Plan Assessment & Plan (1) Pulmonary nodules: Code(s): R91.8 - Other nonspecific abnormal finding of lung field Category: Medical (2) Cough: Code(s): R05 - Cough Category: Medical Qualifiers: Cough type: chronic Qualified Code(s): R05.3 - Chronic cough (3) JORGE LUIS on CPAP: Code(s): G47.33 - Obstructive sleep apnea (adult) (pediatric); Z99.89 - Dependence on other enabling machines and devices Category: Medical (4) Asthma-COPD overlap syndrome: Code(s): J44.9 - Chronic obstructive pulmonary disease, unspecified Category: Medical (5) Dyspnea: Comment: better Code(s): R06.00 - Dyspnea, unspecified Category: Medical Qualifiers: Dyspnea type: dyspnea on exertion Qualified Code(s): R06.09 - Other forms of dyspnea (6) Breast cancer: Code(s): C50.919 - Malignant neoplasm of unspecified site of unspecified female breast Category: Medical Plan continue Alvesco 180 mcg. continue Daliresp 500 mcg daily short-acting beta agonist as needed repeat CT scan of the chest qfollow-up in 12 months Orders: Orders CT chest wo IV con Today C50.919 - Malignant neoplasm of unspecified site of unspecified female breast, R91.8 - Other nonspecific abnormal finding of lung field Coding Level of Care Code Est Pt Level 4 (44813) Complex EM visit Add On G2211 Diagnoses Pulmonary nodules R91.8 Chronic cough R05.3 Cough type: chronic JORGE LUIS on CPAP G47.33; Z99.89 Asthma-COPD overlap syndrome J44.9 Dyspnea on exertion R06.09 Dyspnea type: dyspnea on exertion Breast cancer C50.919 Time Spent (min) 16
[2024-12-28 08:43] VITALS: BP 90/62; PULSE 80; O2SAT 99; BMI 24.6
--- OUTSIDE RECORDS SUMMARY | 2024-12-28 09:04 | XMS_ITS | Continuity of Care Document ---
Author Organization [facility]. If a dditional information is needed, contact Health Information Management at [phone] Address [address] [place] [address] Phone Care Team Providers Care Sales Property Manager Name Role Phone Unavailable Unavailable Unavailable Unavailable Unavailable Unavailable Unavailable Unavailable Unavailable Problems Cough Onset:12-Mar-2023 Wilian Woodward DO POSSIBLE SEPSIS Onset:12-Mar-2023 Wilian Woodward DO Urinary tract infectious dis ease Onset:12-Mar-2023 Wilian Woodward DO Fever Onset:12-Mar-2023 Wilian Woodward DO Mental Status Cognitive function finding 13-Mar-2023 Allergies and Adverse Reactions No Known Allergies(Allergy) Onset: 15-Aug-2023 Medications cholecalciferol 0.025 MG Ora l Capsule;1000 UNITS ORAL DAILY Start:15-Aug-2023 Comments:1000 UNITS PO DAILY amitriptyline hydrochloride 10 MG Oral Tablet;10 MILLIGRAM ORAL DAILY Start:15-Aug-2023 Comments:10 MG PO DAILY aspirin 81 MG Chewable Table t;81 MILLIGRAM ORAL DAILY Start:15-Aug-2023 Comments:81 MG PO DAILY rosuvastatin calcium 10 MG O ral Tablet;10 MILLIGRAM ORAL DAILY Start:15-Aug-2023 Comments:10 MG PO DAILY ubidecarenone 100 MG Oral Ca psule;200 MILLIGRAM ORAL DAILY Start:15-Aug-2023 Comments:200 MG PO DAILY roflumilast 0.5 MG Oral Tabl et;500 MICROGRAM ORAL DAILY Start:15-Aug-2023 Comments:500 MCG PO DAILY 60 ACTUAT ciclesonide 0.16 M G/ACTUAT Metered Dose Inhaler;1 PUFF(S) INHALATION Q48HR Start:15-Aug-2023 Comments:1 PUFF INH Q48HR ibuprofen 600 MG Oral Tablet ;400 MILLIGRAM ORAL Q6H Start:15-Mar-2023 Status:Discontinued Comments:400 MG PO Q6H As Needed for fever cephalexin 500 MG Oral Capsu le;500 MILLIGRAM ORAL Q8HR Start:15-Mar-2023 Status:Discontinued Comments:500 MG PO Q8HR LORazepam 0.5 MG Oral Tablet ;0.5 MILLIGRAM ORAL TID PRN Start:14-Mar-2023 Comments:0.5 MG PO TID PRN As Needed for ANXIETY 60 ACTUAT ciclesonide 0.16 M G/ACTUAT Metered Dose Inhaler;160 MICROGRAM Q48HR Start:13-Mar-2023 Status:Discontinued Comments:160 MCG Q48HR anastrozole 1 MG Oral Tablet ;1 MILLIGRAM ORAL DAILY Start:13-Mar-2023 Comments:1 MG PO DAILY Social History Smoking Status Ex-smoker Recorded: 13-Mar-2023 Encounters pre-admission 20-Aug-2023 10:30 Obed Leal MD (Attending) [facility]
--- OUTSIDE RECORDS SUMMARY | 2024-12-28 09:05 | XMS_ITS | Clinical Summary ---
Author Organization [facility] Address [address] [place] [address] Care Team Providers Care Form Builder Helper Name Role Phone Elfego Ricci MD Primary Care Provider [phone] Allergies Active Allergy Reactions Criticality Noted Date Comments Gabapentin 09/18/2021 Oxycodone-Acetaminophen Nausea Only 09/18/2021 Medications Medication Sig Dispensed Refills Start Date End Date Status albuterol (ProAir HFA) 108 (90 Base) MCG/ACT inhaler Inhale 180 mcg into the lungs. 0 05/24/2015 Active amitriptyline (ELAVIL) 10 MG tablet See Instructions, 1-2 tablets By Mouth Daily an hour before bedtime, # 180 each, Refills 3, Tot. Refills 3, Maintenance, 10/04/20 19:51:00 EDT, Instructions Replace Required Details, Route to Pharmacy Electronically, [id number], [address]... 0 10/04/2020 Active anastrozole (ARIMIDEX) 1 MG tablet 0 08/18/2021 Active ascorbic acid (VITAMIN C) 500 MG tablet Take 500 mg by mouth. 0 Act rickey azithromycin (ZITHROMAX) 500 MG tablet TAKE 1 TABLET BY MOUTH 3 TIMES A WEEK ON Saturday AND SATURDAY 0 09/12/2018 Active Cholecalciferol 25 MCG (1000 UT) capsule Take by mouth. 0 Active Alvesco 160 MCG/ACT inhaler INHALE 1 PUFF INTO THE LUNGS EVERY DAY 0 07/27/2021 Active diclofenac (VOLTAREN) 75 MG EC tablet Take 75 mg by mouth. 0 02/15/2020 Acti ve enoxaparin (LOVENOX) 40 MG/0.4ML SOLN INJECT 1 PEN UNDER THE SKIN 2 HOURS BEFORE PROCEDURE AND CONTINUE ONCE A DAY FOR 1 MONTH AFTER PROCEDURE 0 06/30/2021 Active LORazepam (ATIVAN) 0.5 MG tablet Take 0.5 mg by mouth. 0 07/10/2021 Active melatonin 3 MG TABS tablet Take by mouth. 0 Active montelukast (SINGULAIR) 10 MG tablet Take 10 mg by mouth. 0 Acti ve [place]-3 Fatty Acids (Fish Oil) 1000 MG CAPS Take by mouth. 0 Active Daliresp 500 MCG tablet Take 1 tablet by mouth daily. 0 07/22/2021 Active Active Problems No known active problems Family History Medical History Relation Name Comments Diabetes Father Cancer Mother Cancer Sister Relation Name Status Comments Father Mother Sister Social History Tobacco Use Types Packs/Day Years Used Date Smoking Tobacco: Never Smokeless Tobacco: Never Alcohol Use Standard Drinks/Week Comments Not Currently 0 (1 standard drink = 0.6 oz pur e alcohol) Sex and Gender Information Value Date Recorded Sex Assigned at Female 09/18/2021 9:04 AM EDT Gender Identity Not on file Sexual Orientation Not on file Job Start Date Occupation Industry Not on file Not on file Not on file Last Filed Vital Signs Vital Sign Reading Time Taken Comments Blood Pressure - - Pulse - - Temperature - - Respiratory Rate - - Oxygen Saturation - - Inhaled Oxygen Concentration - - Weight 70.3 kg (155 lb) 10/19/2021 9:36 AM EDT Height 167.6 cm (5' 6 ) 10/19/2021 9:36 AM EDT Body Mass Index 25.02 10/19/2021 9:36 AM EDT Plan of Treatment Health Maintenance Due Date Last Done Comments Hepatitis C Screening 1955 Depression Screening 1967 Preventative Health Evaluation 1973 Colon Cancer Screening (Colonoscopy) 2000 Breast Cancer Screening (Mammogram) 2005 Shingrix-Zoster Vaccine (1 of 2) 2005 DTap / Tdap / Td (1 - Tdap) 11/08/2006 11/07/2006 Fall Risk Assessment 2020 Osteoporosis Screening (DEXA Scan) 2020 Pneumococcal Vaccine (1 of 1 - PCV) 2020 COVID-19 Vaccine ( season) 2024 01/31/2021, 07/14/2020, 06/22/2020 Influenza Vaccine (#1) 2025 2, 05/10/2021, 03/23/2020, Additional history exists RSV Adult > 60+ Yrs or (1 - 1-dose 75+ series) 2030 Hepatitis B Vaccines Aged Out No long er eligible based on patient's age to complete this topic RSV Ped < 20 months Aged Out No longe r eligible based on patient's age to complete this topic Care Teams Form Builder Helper Relationship Specialty Start Date End Date Elfego Ricci MD [address] [place] [address] PCP - General Internal Medicine 09/18/21
--- OUTSIDE RECORDS SUMMARY | 2024-12-28 09:05 | XMS_ITS | Clinical Summary ---
Author Organization [facility] Address [address] [place] [address] Care Team Providers Care Supervisor Propellant Charge Loading Name Role Phone Unavailable Primary Care Provider Unavailabl e Social History Tobacco Use Types Packs/Day Years Used Date Smoking Tobacco: Never Assessed Comments Unknown Sex and Gender Information Value Date Recorded Sex Assigned at Not on file Legal Sex Female 11:34 AM EDT Gender Identity Not on file Sexual Orientation Not on file Plan of Treatment Health Maintenance Due Date Last Done Comments Hepatitis C Virus Screening 1955 DTaP/Tdap/Td Vaccines (1 - Tdap) 1974 Pneumococcal Vaccines 50+ (1 of 1 - PCV) 2005 Zoster (Shingles) Vaccine (1 of 2) 2005 COVID-19 Vaccine ( - 2023-2 5 season) 2024 RSV Vaccine 60 years and old er and Patients (1 - 1-dose 75+ series) 2030 Hepatitis B Vaccines Aged Out No long er eligible based on patient's age to complete this topic
--- OUTSIDE RECORDS SUMMARY | 2024-12-28 09:05 | XMS_ITS ---
Author Name [facility] Organization Unknown History of Medication Use Medication Directions Dispensed Refills Start Date End Date Stat us Alvesco 160 mcg/actuation aerosol inhaler INHALE 1 PUFF BY MOUTH DAILY. RINSE MOUTH AFTER USE 11/09/2024 completed roflumilast 500 mcg tablet TAKE 1 TABLET BY MOUTH DAILY 11/09/2024 completed amitriptyline 10 mg tablet TAKE 1 TABLET BY MOUTH DAILY AT BEDTIME active lorazepam 0.5 mg tablet TAKE 1 TABLET BY MOUTH THREE TIMES DAILY NEEDED FOR ANXIETY active oxycodone 5 mg tablet TAKE 1 TABLET BY MOUTH EVERY 4 TO 6 HOURS active rosuvastatin 10 mg tablet TAKE 1 TABLET BY MOUTH EVERY DAY active Allergies Allergen Reaction Severity Comment Documented Date Source Statu s GABAPENTIN ITCHING mild ENS_AONECT Problems Problem Status Onset Date Problem Type Date of Resoluti on Source Closed fracture of proximal phalanx of middle finger active 2024-11-09 ProblemAct ENS_AONECT Encounters Encounter Type Encounter Reason Primary Diagnosis Location Date Ambulatory ROUTINE Displaced fractu re of proximal phalanx of other finger, initial encounter for closed fracture [facility] 11/16/2024 Ambulatory [facility] [place] 11/14/2024 Ambulatory [facility] [place] 11/13/2024 Ambulatory [facility] [place] 11/13/2024 Ambulatory [facility] [place] 11/12/2024 Ambulatory [facility] [place] 11/10/2024 Ambulatory [facility] [place] 11/09/2024 Ambulatory [facility] [place] 11/09/2024 Ambulatory [facility] [place] 11/09/2024 Ambulatory [facility] [place] 11/09/2024 Ambulatory [facility] [place] 07/11/2022 Care Team Organization Name Specialty Phone Email Start Date End Da te [facility] 2024 [facility] 2024
--- OUTSIDE RECORDS SUMMARY | 2024-12-28 09:06 | XMS_ITS | Clinical Summary ---
Author Organization [facility] Address [address] [place] [phone] Phone Care Team Providers Care Telephone Repairer Name Role Phone Elfego Ricci MD Primary Care Provider Allergies Active Allergy Reactions Criticality Noted Date Comments Gabapentin 09/18/2021 Oxycodone-Acetaminophen Nausea and/or Vo miting,Nausea Only 09/18/2021 Medications anastrozole (ARIMIDEX) 1 mg tablet Take 1 mg by mouth daily. Active ciclesonide (ALVESCO) 160 mcg/actuation inhaler Inhale 1 puff into the lungs 2 (two) times a day. Active montelukast (SINGULAIR) 10 mg tablet Take 10 mg by mouth nightly at bedtime. Active amitriptyline (ELAVIL) 10 MG tablet TAKE 2 TABLETS BY MOUTH DAILY AT BEDTIME 05/04/2022 Active fluticasone furoate (VERAMYST) 27.5 mcg/actuation nasal spray 2 sprays by Nasal route daily. 10 g 12 05/17/2022 Active ascorbic acid, vitamin C, (VITAMIN C) 500 mg Chew Take 500 mg by mouth. Active cholecalciferol , vitamin D3, 25 mcg (1,000 unit) capsule Take by mouth. Active docosahexaenoic acid-epa 120-180 mg Cap Take by mouth. Active LORazepam (ATIVAN) 0.5 MG tablet Take 0.5 mg by mouth 3 (three) times a day as needed. 06/27/2022 Active tiZANidine (ZANAFLEX) 4 MG tablet Take 4 mg by mouth. 12/13/2021 Active Active Problems Problem Noted Date Diagnosed Date Breast cancer 12/10/2012 Overview (06/26/2014): Breast cancer Family History Medical History Relation Comments Dementia Father Diabetes Father Hypertension Father Breast cancer Mother Breast Cancer Breast cancer Sister Breast Cancer Relation Status Comments Father Mother Sister Social History Tobacco Use Types Packs/Day Years Used Date Smoking Tobacco: Former Smokeless Tobacco: Never Tobacco Cessation:Counseling Given: Not Answered Alcohol Use Standard Drinks/Week Comments Not Asked [...] Orientation Straight 10/11/2021 8: 23 AM EDT Last Filed Vital Signs Vital Sign Reading Time Taken Comments Blood Pressure 135/90 07/30/2013 8:37 AM EDT Pulse 87 07/30/2013 8:37 AM EDT Temperature 35.8 C (96.5 F) 07/30/2013 8:37 AM EDT Respiratory Rate 16 12/10/2012 2:58 PM EDT Oxygen Saturation - - Inhaled Oxygen Concentration - - Weight 71.2 kg (157 lb) 07/18/2022 1:28 PM EDT Height 162.6 cm (5' 4 ) 07/18/2022 1:28 PM EDT Body Mass Index 26.95 07/18/2022 1:28 PM EDT Plan of Treatment Health Maintenance Due Date Last Done Comments LIPID PANEL 1955 DEPRESSION SCREENING 1967 SMOKING Hx and SMOKELESS TOBACCO SCREENING 1968 HEPATITIS C SCREENING 1973 PNEUMOCOCCAL VACCINES (50+ years) (1 of 2 - PCV) 1974 ZOSTER VACCINES (1 of 2) 1974 SCREENING FOR DIABETES 1990 COLOGUARD 2000 COLONOSCOPY 2000 COLORECTAL CANCER SCREENING 2000 FIT TEST 2000 FOBT 2000 SIGMOIDOSCOPY 2000 VIRTUAL COLONOSCOPY 2000 OSTEOPOROSIS SCREENING INITI AL (ONE-TIME) 2020 COVID-19 VACCINE (4 - 2023-2 5 season) 2024 01/31/2021, 07/14/2020, 06/22/2020 RSV VACCINE (1 - 1-dose 75+ series) 2030 Adult Td,Tdap Booster 07/28/2030 07/28/2020 , 11/07/2006 HEPATITIS A VACCINES Aged Out No long er eligible based on patient's age to complete this topic HIB VACCINES Aged Out No longer eligi ble based on patient's age to complete this topic MENINGOCOCCAL VACCINES (ACWY) Aged Out No longer eligible based on patient's age to complete this topic MENINGOCOCCAL VACCINES (B) Aged Out N o longer eligible based on patient's age to complete this topic Medical Devices Not on file Insurance MEDICARE PART A & B [facility] MEDEX SUPPLEMENT MEDICARE PART A & B [place] [employer] MEDEX SUPPLEMENT MEDICARE PART A & B [employer] MEDEX SUPPLEMENT MEDICARE PART A & B [employer] MEDEX SUPPLEMENT MEDICARE PART A & B [employer] MEDEX SUPPLEMENT MEDICARE PART A & B [employer] MEDEX SUPPLEMENT Member Subscriber Plan / Payer (Ef fective 2020-) Name:Salma Arellano Relation to Subscriber:Self Name:Salma Arellano Payer ID:[id number] (NAIC) Type:Indemnity Address: [place] [id number] MEDICARE PART A & B [employer] MEDEX SUPPLEMENT MEDICARE PART A & B [employer] MEDEX SUPPLEMENT Member Subscriber Plan / Payer (Ef fective 2020-Present) Name:Salma Arellano Member ID:[id number] Relation to Subscriber:Self Name:Salma Arellano Subscriber ID:[id number] Payer ID:[id number] Group ID:Not on file Type:Medicare Address: [employer] [facility] [address] [address] [employer] MEDEX SUPPLEMENT Advance Directives For more information, please contact: [phone] (9AM - 5PM [facility], Saturday-Saturday) Documents on File Type Date Recorded Patient Concert Singer Expl anation Advance Directive - Non Epic LMR 12/10/2012 12:00 AM Care Teams Telephone Repairer Relationship Specialty Start Date End Date Elfego Ricci MD [address] [place] [id number] PCP - General 09/10/14 Additional Source Comments The information contained in this document represents components of the legal health record. It is not the complete legal health record.[facility]
== END 2024-12-28 09:02 | disposition home or self-care (01) ==
LOC: HO.HPS 08:39
PROVIDERS: PCP Internal Medicine; Visit Provider Hospitalist
DX: R91.8 Other nonspecific abnormal finding of lung field (principal); R05.3 Chronic cough; G47.33 Obstructive sleep apnea (adult) (pediatric); Z99.89 Dependence on other enabling machines and devices; J44.9 Chronic obstructive pulmonary disease, unspecified; R06.09 Other forms of dyspnea; C50.919 Malignant neoplasm of unspecified site of unspecified female breast
CPT/HCPCS: 99214; G2211

== ENCOUNTER → 2024-12-28 08:38 | Outpatient (BNVA) | payer MEDICARE, SELFPAY | PROVIDERS: PCP Internal Medicine; Visit Provider Hospitalist | DX: R91.8 Other nonspecific abnormal finding of lung field (principal); R05.3 Chronic cough; G47.33 Obstructive sleep apnea (adult) (pediatric); J44.9 Chronic obstructive pulmonary disease, unspecified; R06.09 Other forms of dyspnea; C50.919 Malignant neoplasm of unspecified site of unspecified female breast; Z99.89 Dependence on other enabling machines and devices | CPT/HCPCS: 99212 ==

== ENCOUNTER 2025-01-02 07:33 | Outpatient (REF) | payer MEDICARE, SELFPAY ==
--- OUTSIDE RECORDS SUMMARY | 2021-11-07 | XMS_ITS | Encounter Summary ---
Author Organization [facility] Address [address] [facility] [address] [place] [address] Phone Care Team Providers Care Supervisor Stage Carpentry Name Role Phone Elfego Ricci MD Primary Care Provider [phone] Encounter Details Date Type Department Care Team (Late st Contact Info) Description 11/07/2021 Hospital Encounter [facility] OUTS[facility] [address] [place] [phone] Pradeep Restrepo MD [address] [place] [phone] [email or web address]. [facility] Social History Tobacco Use Types Packs/Day Years Used Date Smoking Tobacco: Former Smokeless Tobacco: Never Alcohol Use Standard Drinks/Week Comments Not Asked 0 (1 standard drink = 0.6 oz pur e alcohol) rarely Education Answer Date Recorded Are you interested in more education? Not on yas e 09/08/2022 Are you concerned about learning? Not on file 09/08/2022 No 09/08/2022 No 09/08/2022 Digital Access Answer Date Recorded No 09/30/2022 No 09/30/2022 No 09/30/2022 Reliable internet access at home? Not on file 09/30/2022 Device with a working camera? Not on file Comments Unknown Sex and Gender Information Value Date Recorded Sex Assigned at Female 10/11/2021 8:23 AM EDT Legal Sex Female 5:51 PM EST Gender Identity Female 10/11/2021 8:23 AM EDT Sexual Orientation Straight 10/11/2021 8: 23 AM EDT documented as of this encounter Plan of Treatment Not on file documented as of this encounter Procedures Procedure Name Priority Date/Time Associated Diagnosis Comments MRI BRAIN OUTSIDE (NO INTERPRETATION) Routine 11/07/2021 12:00 AM EDT documented in this encounter Results * MRI Brain Outside (No Interpretation) (11/07/2021 12:00 AM EDT) Narrative [facility] - 05/16/2022 12:05 PM EST This study is for PACS storage only and not for interpretation. us Pradeep Restrepo MD IMG OUTSIDE IMAGING W/OUT IN TERPRETATION Final Result [facility] documented in this encounter Visit Diagnoses Not on filedocumented in this encounter Care Teams Supervisor Stage Carpentry Relationship Specialty Start Date End Date Elfego Ricci MD [address] [address] PCP - General 09/10/14 documented as of this encounter Additional Source Comments The information contained in this document represents components of the legal health record. It is not the complete legal health record.[facility]
--- OUTSIDE RECORDS SUMMARY | 2022-03-30 01:00 | XMS_ITS | Encounter Summary ---
Author Organization [facility] Address [address] [facility] [address] [place] [address] Phone Care Team Providers Care Visual Display Manager Name Role Phone Elfego Ricci MD Primary Care Provider [phone] Encounter Details Date Type Department Care Team (Late st Contact Info) Description 03/30/2022 Hospital Encounter [facility] OUT[facility] [address] [place] [address] Pradeep Restrepo MD [address] [place] [phone] [email or web address]. [facility] Social History Tobacco Use Types Packs/Day Years [...] Procedure Name Priority Date/Time Associated Diagnosis Comments CT NECK OUTSIDE (NO INTERPRETATION) Routine 03/30/2022 12:00 AM EST documented in this encounter Results * CT Neck Outside (No Interpretation) (03/30/2022 12:00 AM EST) Narrative [facility] - 05/16/2022 11:44 AM EST This study is for PACS storage only and not for interpretation. us Pradeep Restrepo MD IMG OUTSIDE IMAGING W/OUT IN TERPRETATION Final Result [facility] documented in this encounter Visit Diagnoses Not on filedocumented in this encounter Care Teams Visual Display Manager Relationship Specialty Start Date End Date Elfego Ricci MD [address] [address] PCP - General 09/10/14 documented as of this encounter Additional Source Comments The information contained in this document represents components of the legal health record. It is not the complete legal health record.[facility]
--- OUTSIDE RECORDS SUMMARY | 2024-12-30 23:59 | XMS_ITS | Continuity of Care Document ---
Author Organization [facility] Address [address] [place] [address]- Care Team Providers Care Casino Shift Manager Name Role Phone Elfego Ricci MD Primary Care Physician [phone] Encounter [facility] Date(s): 12/23/24 - 12/30/24 [facility] [address] [place], [place] [address] Attending Physician: Elfego Ricci MD Encounter Type: Office Visit Allergies, Adverse Reactions, Alerts Substance Criticality Severity Reaction Reaction Severity Status gabapentin Active Percocet 5/ nausea Activ e Immunizations Given and Recorded Vaccine Date Status Refusal Reason influenza virus vaccine, inactivated 02/01/22 Ceasar rded influenza virus vaccine, inactivated 05/10/21 Ceasar rded influenza virus vaccine, inactivated 03/23/20 Ceasar rded influenza virus vaccine, inactivated 01/24/18 Ceasar rded influenza virus vaccine, inactivated 1 04/25/16 Gi tomas influenza virus vaccine, inactivated 2 03/30/15 Gi tomas influenza virus vaccine, inactivated 3 03/08/14 Gi tomas SARS-CoV-2 (COVID-19) mRNA BNT-162b2 vac 01/31/21 Recorded SARS-CoV-2 (COVID-19) mRNA BNT-162b2 vac 07/14/20 Recorded SARS-CoV-2 (COVID-19) mRNA BNT-162b2 vac 06/22/20 Recorded tetanus/diphtheria/pertussis, acel(Tdap) 07/28/20 Recorded Influenza Virus Vaccine (oldterm) 4 02/14/07 Given tetanus-diphtheria toxoids (Td) 5 11/07/06 Given 1Result Comment: [04/25/2016] given without incident.....vs 2Result Comment: [03/30/2015] given without incident....vs 3Result Comment: [03/08/2014] given w/out incident 4Admin Note: [employer] 5Admin Note: [facility] Medications Alvesco 160 mcg/inh inhalation aerosol INHALE 1 PUFF INTO THE LUNGS EVERY DAY Start Date: 04/05/22 Status: Ordered Medication Dispense Status: Completed Total Allowed Fills: 1 Fills Dispensed: 0 amitriptyline 10 mg oral tablet 10 mg, 1, tablet, By Mouth, Daily at bedtime, # 90 each, Refills 3, Tot. Refills 3, Maintenance, 11/17/24 7:39:00 AM EDT, Route to Pharmacy Electronically, [facility] #[id number], 165.1, cm, 11/13/24 13:01:00 EDT, Height, 67.8, kg, 09/25/24 14:19:00 EDT, Dry Weight Start Date: 11/17/24 Status: Ordered Medication Dispense Status: Completed Quantity: 90.0 Unit: each Total Allowed Fills: 4 Fills Dispensed: 0 Coenzyme Q10 50 mg oral capsule 1 capsule = 50 mg, By Mouth, Daily, # 30 capsule, 0 Refills, Maintenance, 12/23/23 3:52:00 PM EDT, Capsule, Partial fill upon patient request if the prescription is for a schedule II opioid drug. Start Date: 12/23/23 Status: Ordered Medication Dispense Status: Completed Quantity: 30.0 Unit: capsule Total Allowed Fills: 1 Fills Dispensed: 0 Fish Oil By Mouth, 0 Refills, Maintenance, 06/07/20 2:18:00 PM EST, Partial fill upon patient request if the prescription is for a schedule II opioid drug. Start Date: 06/07/20 Status: Ordered Medication Dispense Status: Completed Total Allowed Fills: 1 Fills Dispensed: 0 ibuprofen 800 mg oral tablet 800 mg, 1, tablet, By Mouth, 3 times a day, PRN, # 30 tablet, Refills 0, Maintenance, for pain, 11/13/24 1:09:00 PM EDT, Partial fill upon patient request if the prescription is for a schedule II opioid drug. Start Date: 11/13/24 Status: Ordered Medication Dispense Status: Completed Quantity: 30.0 Unit: tablet Total Allowed Fills: 1 Fills Dispensed: 0 LORazepam 0.5 mg oral tablet 1 tablet = 0.5 mg, By Mouth, 3 times a day, as needed for anxiety, # 30 each, 0 Refills, Maintenance, 11/13/24 4:48:00 PM EDT, [facility] #[id number], replaces previous 1mg prescription, 165.1, cm, 11/13/24 13:01:00 EDT, Height, 67.8, kg, 09/25/24 14:19:00 EDT, Dry Weight Start Date: 11/13/24 Status: Ordered Medication Dispense Status: Completed Quantity: 30.0 Unit: each Total Allowed Fills: 1 Fills Dispensed: 0 ProAir HFA 90 mcg/inh inhalation aerosol with adapter 2 puffs = 180 mcg, Inhalation, 4 times a day, PRN for wheezing, # 1 each, 11 Refills, Maintenance, 05/24/15 4:32:28 PM EST, Inhaler, [facility], 2 puffs Inhalation 4 times a day,PRN:for wheezing Start Date: 05/24/15 Status: Ordered Medication Dispense Status: Completed Quantity: 1.0 Unit: each Total Allowed Fills: 12 Fills Dispensed: 0 Proctozone-HC 2.5% topical cream 1 application, Topically, 2 times a day, PRN hemorrhoid symptoms, # 30 Gm, 3 Refills, Acute 255:00:00 PM EDT, 01/20/24 4:59:00 PM EDT, Cream, [facility] #[id number], Partial fill upon patient request if the prescription is for a schedule II opioid drug., 1 application Topically 2 times a day,PRN:hemorrhoid symptoms, 165.1, cm, 12/23/23 15:17:00 EDT, Height, 66.3, kg, 12/23/23 15:17:00 EDT, Dry Weight Start Date: 01/20/24 Stop Date: 01/19/25 Status: Ordered Medication Dispense Status: Completed Quantity: 30.0 Unit: g Total Allowed Fills: 4 Fills Dispensed: 0 rosuvastatin 10 mg oral capsule See Instructions, 1 capsule By Mouth Daily twice a week, 0 Refills, Maintenance, 10/08/23 1:07:00 PM EDT, Partial fill upon patient request if the prescription is for a schedule II opioid drug. Start Date: 10/08/23 Status: Ordered Medication Dispense Status: Completed Total Allowed Fills: 1 Fills Dispensed: 0 Vitamin D3 1000 intl units oral tablet 1000 International_Units, 1, tablet, By Mouth, Daily, # 30, 11 Refills Start Date: 07/09/08 Status: Ordered Medication Dispense Status: Completed Quantity: 30.0 Unit: Total Allowed Fills: 12 Fills Dispensed: 0 Problem List Condition Confirmation Course Effective Dates Status H ealth Status Informant COPD with asthma Confirmed Active Carpal tunnel syndrome Confirmed Active Occipital neuralgia of right side Confirmed Active Chronic sinusitis Confirmed Active Edema Confirmed Active Hemorrhoids Confirmed Active Hyperlipidemia Confirmed Active Infiltrating ductal carcinoma of breast, stage 1; lower inner q Confirmed 2013 Active Myofascial pain Confirmed Active Obstructive sleep apnea Confirmed Active Raynaud's phenomenon Confirmed Active Depression Confirmed Active Social History Social History Type Response Smoking Status Former smoker; Other : quit 1998; entered on: 03/08/14 Sex Sex Representation Female (finding) Note * Demetria Jefferson: PERFORM Event Display: Patient Education/Instruction Authored Date: Ambulatory Adult Visit Summary [facility] [address] [place], [place] [id number] Name: CARLOS CLARK : 1955?? Visit: 12/23/2024 13:09?? Ambulatory Visit Instructions ?? Your Care Team Primary Care Provider Elfego Ricci MD? This Visit Provider Elfego Ricci MD Your Diagnosis Medicare annual wellness visit, subsequent COPD with asthma Hyperlipidemia Infiltrating ductal carcinoma of breast, stage 1; ??lower inner q Myofascial pain Obstructive sleep apnea Abdominal pain Vitals Signs Pulse Rate: 79 bpm Height: 165.1 cm Systolic Blood Pressure: 125 mm Hg Weight: 67.9 kg Diastolic Blood Pressure: 78 mm Hg Body Mass Index: 24.91 kg/m2 Oxygen Saturation: 96 % Body surface area: 1.76 What to do next Instructions From Your Provider continue current medication, supplements, diet, and low impact activity; check lab today, will contact you with results; continue specialty follow up as scheduled; call if any question or problem Scheduled Follow-Up Appointments Saturday 9:00 AM EDT ?? With: Tom MONTGOMERY, Janett Campbell Where: [facility] [address] [place] [address] Drive [address] [place] [address]- Status: Pending Future Orders Urine Culture - Routine, Once, 12/23/24 13:56:00 EDT, [facility], Urine Clean Catch?? Complete Urinalysis (Urinalysis Complete) - Routine, Once, 12/23/24 13:56:00 EDT, [facility], Urine?? Lipid Panel - Routine, Once, 12/23/24 13:56:00 EDT, Future Order, [facility], Blood?? CBC w/ Differential - Routine, Once, 12/23/24 13:56:00 EDT, Future Order, [facility], Blood?? Comprehensive Metabolic Panel - Routine, Once, 12/23/24 13:56:00 EDT, Future Order, [facility], Blood?? Hemoglobin A1C (Monitoring) (Hgb A1C (Monitoring)) - Routine, Once, 12/23/24 13:56:00 EDT, Future Order, [facility], Blood?? Vitamin D 25 Hydroxy Level - Routine, Once, 12/23/24 13:56:00 EDT, Future Order, [facility], Blood?? Medications The list below reflects the information in our records and provided by you today along with any changes made during this visit. Please continue your medications until treatment is completed or stopped by your provider. If this is different from the information you have or there are other questions,please contact the prescribing provider. What How Much When Instructions Changed Rosuvastatin (rosuvastatin 10 mg oral capsule) See instructions 1 capsule By Mouth Daily twice a week ?? Unchanged Albuterol (ProAir HFA 90 mcg/ inh inhalation aerosol with adapter) 2 puff(s) Inhalation 4 times a day as needed for for wheezing Unchanged amiTRIPTYLINE (amitriptyline 10 mg oral tablet) 1 tab(s) Oral Daily at Bedtime Unchanged Cholecalciferol (Vitamin D3 1000 intl units oral tablet) 1 tab(s) Oral Daily Unchanged Ciclesonide (Alvesco 160 mcg/ inh inhalation aerosol) INHALE 1 PUFF INTO THE LUNGS EVERY DAY ?? Unchanged Hydrocortisone Topical (Proctozone-HC 2.5% topical cream) 1 [place] Topically Twice a day as needed for hemorrhoid symptoms Unchanged Ibuprofen (ibuprofen 800 mg oral tablet) 1 tab(s) Oral 3 times a day as needed for for pain Unchanged Lorazepam (LORazepam 0.5 mg oral tablet) 1 tab(s) Oral 3 times a day as needed for anxiety ?? Unchanged [place]-3 Polyunsaturated Fatty Acids (Fish Oil) Oral Unchanged Ubiquinone (Coenzyme Q10 50 mg oral capsule) 1 capsule Oral Daily Test Performed Below is a partial list of the tests performed during your Visit. You may have had other tests and procedures not included in this list. Please discuss all test results with your provider. CBC w/ Differential?-- Results Pending -- Comprehensive Metabolic Panel?-- Results Pending -- Hgb A1C (Monitoring)?-- Results Pending -- Lipid Panel?-- Results Pending -- POC UA ([facility]) Urinalysis Complete?-- Results Pending -- Urine Culture?-- Results Pending -- Vitamin D 25 Hydroxy Level?-- Results Pending -- Lab Test Results Below is a partial list of the most recent Laboratory test results done during your Visit. You may have had other tests and procedures not included in this list. Please discuss all test results with your provider. Test Name Test Result Date/Time POC UA Glucose NEGATIVE 12/23/2024 14:00 EDT POC UA Bilirubin NEGATIVE 12/23/2024 14:00 EDT POC UA Ketones NEGATIVE 12/23/2024 14:00 EDT POC UA Specific [place] 1.020 12/23/2024 14:00 EDT POC UA Blood 1+ 12/23/2024 14:00 EDT POC UA PH 5.5 1 12/23/2024 14:00 EDT POC UA Protein NEGATIVE 12/23/2024 14:00 EDT POC UA Urobilinogen 0.2 mg/dL 12/23/2024 14:00 EDT POC UA Nitrite NEGATIVE 12/23/2024 14:00 EDT POC UA Leukocytes NEGATIVE 12/23/2024 14:00 EDT POC UA Color YELLOW 12/23/2024 14:00 EDT POC UA Clarity CLEAR 12/23/2024 14:00 EDT Medications and Immunizations Administered Medications Given During Visit No medications given during this visit.?? Allergies (NKA means No Known Allergies) Percocet 5/325??(nausea) gabapentin Common Emergency Awareness Tips IS IT A STROKE? Act FAST and Check for these signs: FACE Does the face look uneven? ARM Does one arm drift down? SPEECH Does their speech sound strange? TIME Call at any sign of stroke ?? Heart Attack Signs Chest discomfort: Most heart attacks involve discomfort in the center of the chest and lasts more than a few minutes, or goes away and comes back. It can feel like uncomfortable pressure, squeezing, fullness or pain. Discomfort in upper body: Symptoms can include pain or discomfort in one or both arms, back, neck, jaw or stomach. Shortness of breath: With or without discomfort. Other signs: Breaking out in a cold sweat, nausea, or lightheaded. Remember, MINUTES DO MATTER. If you experience any of these heart attack warning signs, call to get immediate medical attention! ?? Smoking can increase your chances of developing chronic health problems and can cause harmful effects to other family members in your house. If you smoke, you are strongly encouraged to quit. Please call [employer] at [phone] or 4-415-038-[employer] (0275) or log in to [email or web address] for referrals to smoking cessation programs. ?? The National Suicide Prevention Hotline is available 26/11 if you or someone you know needs to find a reason to keep living. By calling 3-351-600-kmfl (6129) you'll be connected to a skilled, trained counselor at a crisis center in your area. [facility] [employer] Portal You can view and manage your care through the patient portal or by using a health care [place] of your choosing. [employer] is a website that allows you to securely view your medical information including your hospital discharge summary, office visit summaries, medications and follow-up visits. You can also request appointments, renew medications, and request access to your medical information using a health care [place] of your choosing, or just ask a question. You can enroll at [email or web address] or register during your next office visit. [facility], in keeping with [facility] guidance, no longer requires face masks for staff, patientsor visitors in most situations. Similiar to time spent indoors at other locations, there is the chance that you were exposed to repiratory viruses during your time with us (such as flu or COVID-19). If you develop symptoms concerning for a viral respiratory infection, please seek testing (and treatment if indicated) from your medical provider or home test kit. ?? Disclaimer: The information provided is of a general nature and is intended to be used in conjunction with the recommendations and advice of your health care practitioner. Every effort has been made to ensure that the information provided is accurate and complete at the time it is provided to you however, as your needs change, or, as new information becomes available, different or additional instructions may be required. ?? If you have questions, please consult with your primary care provider or pharmacist, as appropriate. This information is not intended to serve as substitution for assessment and evaluation by a qualified health care provider. If you do not have a primary care provider, you may find a [facility] provider by calling [facility] [employer] Link at [phone]. Patient Care team information Care Team Personnel Name: Samaria Alvarenga Position: [facility] Onco RN Member Role: Primary Care Nurse Name: Elfego Ricci MD Position: [facility] Physician - Primary Care Member Role: PCP Address: [address] [place] [address] Adult & Pediatric [address] Telecom: Care Team Related Persons Name: EUSEBIO RAYMUNDO Name: UNKNOWN, UNKNOWN Name: SOLITARIO CLARK Insurance Providers Guarantor name: CARLOS CLARK Health Plan Information #: 1 Payer: MEDICARE B Payer Identifier: NA Member Number: [id number] Group Number: NA Subscriber Identifier: [id number] Relationship to Subscriber: self Coverage Type: NA Coverage Verification Date: NA Telecom: NA Address: Health Plan Information #: 2 Payer: MEDEX SECONDARY ONLY Payer Identifier: NERI Member Number: [id number] Group Number: NA Subscriber Identifier: [id number] Relationship to Subscriber: self Coverage Type: Medicare Other Coverage Verification Date: NA Telecom: NA Address:
--- NOTE | ~2025-01-02 | CT_ITS ---
CLINICAL HISTORY: R91.8 - Other nonspecific abnormal finding of lung field CT chest without contrast Comparison: CT/REG/SR - CT CHEST WITHOUT IV CONTRAST - 12/13/22 10:20 EDT Findings: The heart size is normal. The visualized thyroid and mediastinum are unremarkable. Multifocal atelectasis within the inferior aspects of the lungs. No consolidation or pleural effusion. Tiny bulla within the right lower lobe. Multiple tiny bilateral upper lobe nodules are without significant change. There is no new pulmonary nodule. The upper abdomen is unremarkable. There are advanced degenerative changes of the spine. There is no acute fracture. There are postsurgical changes of the bilateral breasts. IMPRESSION: 1. No acute cardiopulmonary disease. This document has been electronically signed by: Nathaly Kam MD on 01/05/2025 16:29:31
--- OUTSIDE RECORDS SUMMARY | 2025-01-02 07:35 | XMS_ITS | Continuity of Care Document ---
Author Organization [facility]. If a dditional information is needed, contact Health Information Management at [phone] [address] [place] [address] Phone Care Team Providers Care Residential Youth Counselor Name Role Phone Unavailable Unavailable Unavailable Unavailable Unavailable Unavailable Unavailable Unavailable Unavailable Problems Cough Onset:12-Mar-2023 Wilian Woodward DO POSSIBLE SEPSIS Onset:12-Mar-2023 Wilian Woodward DO Urinary tract infectious dis ease Onset:12-Mar-2023 Wilian Woodward DO Fever Onset:12-Mar-2023 Wilian Woodward DO Mental Status Cognitive function finding 13-Mar-2023 Allergies and Adverse Reactions No Known Allergies(Allergy) Onset: 15-Aug-2023 Medications roflumilast 0.5 MG Oral Tabl et;500 MICROGRAM ORAL DAILY Start:15-Aug-2023 Comments:500 MCG PO DAILY cholecalciferol 0.025 MG Ora l Capsule;1000 UNITS ORAL DAILY Start:15-Aug-2023 Comments:1000 UNITS PO DAILY ubidecarenone 100 MG Oral Ca psule;200 MILLIGRAM ORAL DAILY Start:15-Aug-2023 Comments:200 MG PO DAILY aspirin 81 MG Chewable Table t;81 MILLIGRAM ORAL DAILY Start:15-Aug-2023 Comments:81 MG PO DAILY rosuvastatin calcium 10 MG O ral Tablet;10 MILLIGRAM ORAL DAILY Start:15-Aug-2023 Comments:10 MG PO DAILY amitriptyline hydrochloride 10 MG Oral Tablet;10 MILLIGRAM ORAL DAILY Start:15-Aug-2023 Comments:10 MG PO DAILY 60 ACTUAT ciclesonide 0.16 M [...] pre-admission 20-Aug-2023 10:30 Obed Leal MD (Attending) [facility]
--- OUTSIDE RECORDS SUMMARY | 2025-01-02 07:36 | XMS_ITS | Clinical Summary ---
Author Organization [facility] Address [address] [place] [id number] Phone Care Team Providers Care Manager Channel Name Role Phone Elfego Ricci MD Primary Care Provider [phone] Allergies Active Allergy Reactions Criticality Noted Date [...] file Insurance MEDICARE PART A & B [facility] MEDEX SUPPLEMENT MEDICARE PART A & B [place] [employer] MEDEX SUPPLEMENT MEDICARE PART A & B [employer] MEDEX SUPPLEMENT MEDICARE PART A & B [employer] MEDEX SUPPLEMENT MEDICARE PART A & B [employer] MEDEX SUPPLEMENT MEDICARE PART A & B [email or web address] MEDEX SUPPLEMENT Member Subscriber Plan / Payer (Ef fective 2020-) Name:Salma Arellano Relation to Subscriber:Self Name:Salma Arellano Payer ID:[id number] (NAIC) Type:Indemnity Address: [place] [id number] MEDICARE PART A & B [email or web address] MEDEX SUPPLEMENT MEDICARE PART A & B [email or web address] MEDEX SUPPLEMENT Member Subscriber Plan / Payer (Ef fective 2020-Present) Name:Salma Arellano Member ID:[id number] Relation to Subscriber:Self Name:Salma Arellano Subscriber ID:[id number] Payer ID:[id number] Group ID:Not on file Type:Medicare Address: [facility] [address] [address] [email or web address] MEDEX SUPPLEMENT Advance Directives For more information, please contact: [phone] (9AM - 5PM [facility]onda/[facility], Saturday-Saturday) Documents on File Type Date Recorded Patient Logging Equipment Mechanic Expl anation Advance Directive - Non Epic LMR 12/10/2012 12:00 AM Care Teams Manager Channel Relationship Specialty Start Date End Date Elfego Ricci MD [address] [place] [id number] PCP - General 09/10/14 Additional Source Comments The information contained in this document represents components of the legal health record. It is not the complete legal health record.[facility]
--- OUTSIDE RECORDS SUMMARY | 2025-01-02 07:36 | XMS_ITS | Clinical Summary ---
Author Organization [facility] Address [address] [place] [address] Care Team Providers Care Field Agent Name Role Phone Elfego Ricci MD Primary Care Provider [phone] Allergies Active Allergy Reactions Criticality Noted Date [...] Replace Required Details, Route to Pharmacy Electronically, [id number], [address]... 0 10/04/2020 Active anastrozole (ARIMIDEX) [...] 10 mg by mouth. 0 Acti ve [place]-3 Fatty Acids (Fish Oil) 1000 MG CAPS [...] age to complete this topic Care Teams Field Agent Relationship Specialty Start Date End Date Elfego Ricci MD [address] [place] [address] PCP - General Internal Medicine 09/18/21
--- OUTSIDE RECORDS SUMMARY | 2025-01-02 07:36 | XMS_ITS | Clinical Summary ---
Author Organization [facility] Address [address] [place] [address] Care Team Providers Care Proofer Apprentice Name Role Phone Unavailable Primary Care Provider [...]
== END 2025-01-02 07:34 | disposition home or self-care (01) ==
LOC: HO.CT 07:33
PROVIDERS: PCP Internal Medicine; Visit Provider Hospitalist
DX: R91.8 Other nonspecific abnormal finding of lung field (principal); C50.919 Malignant neoplasm of unspecified site of unspecified female breast
CPT/HCPCS: 71250

== ENCOUNTER → 2025-01-02 07:35 | Outpatient (BNV) | payer MEDICARE, SELFPAY | PROVIDERS: PCP Internal Medicine; Visit Provider Radiology Diagnostic Radiology | DX: R91.8 Other nonspecific abnormal finding of lung field (principal) | CPT/HCPCS: 71250 ==